=== PATIENT | male | born 1965 | race Caucasian/White ===

== ENCOUNTER 2022-06-10 23:17 | Inpatient (IN) | payer BC ==
[~2022-06-10] VITALS: Ht 170.2 cm; Wt 90.7 kg
[2022-06-10 23:20] VITALS: BP_SYST 124
[2022-06-10] MEDS ORDERED: cefTRIAXone 1 GM IVPB PREMIX 50 ML IV ONE (23:30)
--- NOTE | 2022-06-10 23:30 | NUR ---
Patient BIBA to bed 4 & connected to CM.
--- NOTE | 2022-06-10 23:30 | NUR ---
Report received from ELEANOR Blank. Patient came from a [facility]. Patient became ALOC, with Hx of CVA & multiple UTI's. Addendum: 06/11/22 at 0322 by [id number] Patient was ALOC 3 hours MED DIR.
--- NOTE | 2022-06-10 23:35 | NUR ---
Patient to CT via [facility].
--- NOTE | 2022-06-10 23:48 | NUR ---
Patient return to bed [address]
--- NOTE | 2022-06-10 23:49 | NUR ---
at bedside for evaluation.
--- NOTE | 2022-06-10 23:51 | NUR ---
Textile Worker at bedside. Blood obtained and specimens sent to lab.
[2022-06-11 00:13] LABS: BASOPHILS % (AUTO) 0.3 % (0.0-2.0); EOSINOPHILS # (AUTO) 0.2 K/uL (0.0-0.4); HEMATOCRIT 27.4 % (36-54); LYMPHOCYTES # (AUTO) 1.2 K/uL (1.0-5.5); LYMPHOCYTES % (AUTO) 21.6 % (20.5-51.5); MEAN CORPUSCULAR HEMOGLOBIN 27 pg (27-31); MEAN CORPUSCULAR HGB CONC 33 % (32-36); MEAN CORPUSCULAR VOLUME 83 fL (79.0-98.0); MONOCYTES # (AUTO) 0.8 K/uL (0.0-1.0); MONOCYTES % (AUTO) 13.2 % (1.7-9.3); NEUTROPHILS # (AUTO) 3.6 K/uL (1.8-7.7); NEUTROPHILS % (AUTO) 61.9 % (40.0-70.0); PLATELET COUNT (AUTO) 404 K/uL (130-430); RED BLOOD CELL COUNT(AUTO) 3.32 MIL/uL (4.2-6.2); RED CELL DISTRIBUTION WIDTH 18.9 % (9.0-15.0); WHITE BLOOD COUNT (AUTO) 5.7 K/uL (4.8-10.8)
[2022-06-11] MEDS ORDERED: NACL 0.9% 1,000 ML IV ONE (00:15)
[2022-06-11 00:25] LABS: ANION GAP 4 (5-15); CALCIUM 8.1 mg/dL (8.4-11.0); CHLORIDE 104 mmol/L (98-107); GLUCOSE 116 mg/dL (70-99); UREA NITROGEN, BLOOD 10 mg/dL (8-21)
[2022-06-11 00:32] LABS: GFR AFRICAN AMERICAN 111 mL/min (>90)
[2022-06-11 00:33] LABS: ALANINE AMINOTRANSFERASE 8 U/L (12-78); ALBUMIN 2.5 g/dL (3.4-4.8); ASPARTATE AMINOTRANSFERASE 17 U/L (10-37); TOTAL BILIRUBIN 0.9 mg/dL (0.0-1.0)
[2022-06-11] MEDS ORDERED: METO-442 PO (00:44)
[2022-06-11] MEDS ORDERED: PRO40 PO (00:44)
[2022-06-11] MEDS ORDERED: DILT60TA3 PO (00:44)
[2022-06-11] MEDS ORDERED: SENN8.6T19 PO (00:44)
[2022-06-11] MEDS ORDERED: CALC-823 PO (00:44)
[2022-06-11] MEDS ORDERED: ONDA-8 TL (00:44)
[2022-06-11] MEDS ORDERED: L. A1TAB14 PO (00:44)
[2022-06-11] MEDS ORDERED: INSU100V42 (00:44)
[2022-06-11] MEDS ORDERED: APIX5TAB4 PO (00:44)
[2022-06-11] MEDS ORDERED: LIP40 PO (00:44)
[2022-06-11] MEDS ORDERED: SER25 PO (00:44)
[2022-06-11] MEDS ORDERED: AMIO200T66 PO (00:44)
[2022-06-11] MEDS ORDERED: LEVE500T9 PO (00:44)
[2022-06-11] MEDS ORDERED: MIRT-114 PO (00:44)
[2022-06-11] MEDS ORDERED: FER300L PO (00:44)
[2022-06-11] MEDS ORDERED: FURO-150 PO (00:44)
[2022-06-11] MEDS ORDERED: DOCU-144 PO (00:44)
[2022-06-11] MEDS ORDERED: DRON2.5C22 PO (00:44)
[2022-06-11] MEDS ORDERED: HYDR-3917 PO (00:48)
[2022-06-11] MEDS ORDERED: ACET325T PO (00:48)
--- NOTE | 2022-06-11 01:05 | NUR ---
VO Dr. Fuentes F/C insertion. UA collected, dipped & sent to lab.
[2022-06-11 01:58] LABS: BILIRUBIN,URINE NEGATIVE (NEGATIVE); BLOOD, URINE 2+ (NEGATIVE); CLARITY/URINE TURBID (CLEAR); COLOR,URINE YELLOW (YELLOW); GLUCOSE,URINE NEGATIVE (NEGATIVE); KETONES,URINE NEGATIVE (NEGATIVE); LEUKOCYTE ESTERASE ,URINE 3+ (NEGATIVE); NITRITE, URINE NEGATIVE (NEGATIVE); PROTEIN URINE 1+ (NEGATIVE); UROBILINOGEN,URINE 0.2 (0.2-1.0)
--- NOTE | 2022-06-11 02:00 | NUR ---
No change from previous assessment.
[2022-06-11 02:12] LABS: BACTERIA,URINE MODERATE /HPF (None Seen); WBC,URINE 50-80 /HPF (0-3)
[2022-06-11 02:13] LABS: MUCUS,URINE 1+ /LPF (None Seen)
--- NOTE | 2022-06-11 03:09 | NUR ---
Admit bed requested Patient will be admitted to care of . Admitted to Med/Surg unit. Diagnosis UTI, ALOC Inpatient (Yes or No) Yes Observation (Yes or No) No Orientation concerns or request close to nursing station (Yes or No) Yes Covid Status Neg On vent or bipap No Isolation requirements No Needs a sitter No From Home (Yes or if No enter name of facility) No: [facility] Requires Dialysis (Yes or No) No Med Rec Completed (Yes of No) Yes
--- NOTE | 2022-06-11 04:09 | NUR ---
Patient will be admitted to care of Dr. Hernandez. Admitted to M/S unit. Will go to room 103A. Belongings list completed. Complete and up to date summary report printed. Report called to EVELYN Farley.
--- NOTE | 2022-06-11 04:15 | NUR ---
ADMISSION NOTE Received patient from ER via [facility], received report from RN. Patient admitted with diagnosis of UTI, ALOC. Patient oriented to hospital routine, call light, toileting and safety-patient needs reinforcement on teachings. Will continue to monitor.
--- NOTE | 2022-06-11 04:33 | NUR ---
CONSULTATION PAGED REASON FOR CONSULTATION: uti WAS CONSULT CALLED? Y PERSON WHO WAS NOTIFIED: Vikki CONSULTING PHYSICIAN: García Gomez REQUESTING PHYSICIAN: Dr. Hernandez
[2022-06-11] MEDS: NACL 0.9% 1,000 ML IV SCH ×2 (05:29→22:20)
--- NOTE | 2022-06-11 06:37 | NUR ---
DR. WALSH CALLED DR. WALSH FOR DIET ORDER, NEW ORDERS GIVEN. WILL ENDORSE TO INCOMING SHIFT NURSE.
[2022-06-11] MEDS ORDERED: INSULIN REGULAR, HUMAN 100 UNITS/ML, 3 ML VIAL (humuLIN R) SUBCUT PRN (06:45)
[2022-06-11] MEDS ORDERED: GLUCOSE (DEXTROSE) ORAL GEL -Adults PO PRN (07:00)
[2022-06-11] MEDS ORDERED: D5W 1,000 ML IV PRN (07:00)
[2022-06-11] MEDS ORDERED: DEXTROSE 50%-WATER 50 ML DISP.SYRIN IVP PRN (07:00)
[2022-06-11 07:08] LABS: BASOPHILS % (AUTO) 0.2 % (0.0-2.0); EOSINOPHILS # (AUTO) 0.2 K/uL (0.0-0.4); EOSINOPHILS % (AUTO) 2.8 % (0.0-4.0); HEMATOCRIT 26.7 % (36-54); LYMPHOCYTES % (AUTO) 13.8 % (20.5-51.5); MEAN CORPUSCULAR HEMOGLOBIN 28 pg (27-31); MEAN CORPUSCULAR HGB CONC 34 % (32-36); MEAN CORPUSCULAR VOLUME 83 fL (79.0-98.0); MONOCYTES # (AUTO) 0.8 K/uL (0.0-1.0); MONOCYTES % (AUTO) 10.9 % (1.7-9.3); NEUTROPHILS % (AUTO) 72.3 % (40.0-70.0); PLATELET COUNT (AUTO) 397 K/uL (130-430); RED BLOOD CELL COUNT(AUTO) 3.21 MIL/uL (4.2-6.2); RED CELL DISTRIBUTION WIDTH 18.9 % (9.0-15.0); WHITE BLOOD COUNT (AUTO) 6.9 K/uL (4.8-10.8)
[2022-06-11 07:31] LABS: CALCIUM 7.8 mg/dL (8.4-11.0); CREATININE 0.87 mg/dL (0.55-1.30); THYROID STIMULATING HORMONE 3.73 uIu/mL (0.34-4.82)
--- NOTE | 2022-06-11 08:00 | NUR ---
Opening note Pt. is currently confused, only able to state name, laying comfortably in bed, no signs of acute distress, waiting for Dr. Hernandez to see the patient. Addendum: 06/11/22 at 1204 by [facility], EVELYN RIVAS Fall precautions in place, bed alarm on.
--- NOTE | 2022-06-11 09:00 | NUR ---
Pt. is now fully awake and is oriented, no longer confused, and able to obey commands, educated on fall precautions, oriented to unit, educated on carlos care and his role in infection prevention, pt. verbalized his understanding.
[2022-06-11 09:28] VITALS: BP_SYST 141
--- NOTE | 2022-06-11 12:08 | NUR ---
Pt's family at bedside is wanting an update from Dr. Hernandez, this pt. was admitted early this AM and pt. has not yet been seen by attending MD. Called Dr. Hernandez to inquire when he would be rounding and about medication reconciliation that has not been done, Dr. Hernandez stated his associate will be coming, Theresa, updated family and patient.
[2022-06-11 13:51] VITALS: BP_SYST 153
[2022-06-11 17:32] VITALS: BP_SYST 139
[2022-06-11 17:38] VITALS: BP_SYST 134
[2022-06-11] MEDS: METOPROLOL TARTRATE 50 MG TABLET PO SCH ×2 (17:42→23:21)
--- NOTE | 2022-06-11 19:32 | NUR ---
Closing Note Pt. is currently resting in bed, family at bedside, no signs of acute distress, full sbar report given to EVELYN Martin.
[2022-06-11 20:00] VITALS: BP_SYST 136
--- NOTE | 2022-06-11 20:00 | NUR ---
RECEIVED IN BED WITH FAMILY MEMBER AT BED SIDE ASSISSMENT COMPLETED PT DENIES PAIN AT THIS TIME PLAN OF CARE REVIEWED WILL CONTINUE TO MONITOR AND ASSESS CALL LIGHT IN REACH LEFT SIDE WEAK SECONDARY TO CVA REPOSITIONED FOR COMFORT CALL LIGHT IN REACH NO ACUTE DISTRESS NOTED
--- NOTE | 2022-06-11 20:00 | NUR ---
RECEIVED IN BED WITH FAMILY AT BEDSIDE A/OX4 HARD OF HEARING DRESSING AT LEFT HIP CLEAN DRY AND INTACT ASSESSMENT COMPLETED PLAN OF CARE REVIEWED WILL CONTINUE TO MONITOR AND ASSESS CALL LIGHT IN REACH NO DISTRESS NOTED AT THIS TIME Addendum: 06/12/22 at 0143 by [facility], EVELYN RIVAS ABOVE NOTED CHARTED IN ERROR
[2022-06-11] MEDS: APIXABAN 2.5 MG TABLET PO SCH (22:12)
[2022-06-11] MEDS: QUEtiapine FUMARATE 25 MG TABLET PO SCH (22:12)
[2022-06-11] MEDS: AMIODARONE HCL 200 MG TABLET PO SCH (22:13)
[2022-06-11] MEDS: MIRTAZAPINE 15 MG TABLET PO SCH (22:13)
[2022-06-11] MEDS: SENNOSIDES 8.6 MG TABLET PO SCH (22:13)
[2022-06-11] MEDS: cefTRIAXone 1 GM in D5W 50 ML IV SCH (22:14)
[2022-06-11] MEDS: levETIRAcetam 500 MG TABLET PO SCH (22:16)
[2022-06-12] VITALS (9 sets, daily range): BP systolic 114–162
--- NOTE | 2022-06-12 00:30 | NUR ---
UPON ROUNDING DENIES PAIN NO DISTRESS NOTED AT THIS TIME
--- NOTE | 2022-06-12 01:44 | NUR ---
BP RECHECKED AND NOTED 152/89 AFTER METOPROLOL PT DENIES HEADACH DENIES CHEST PAIN WILL CONTINUE TO MONITOR AND ASSESSS
[2022-06-12] MEDS: METOPROLOL TARTRATE 50 MG TABLET PO SCH ×3 (05:21→17:32)
[2022-06-12 06:45] LABS: BASOPHILS % (AUTO) 0.1 % (0.0-2.0); EOSINOPHILS # (AUTO) 0.2 K/uL (0.0-0.4); EOSINOPHILS % (AUTO) 3.7 % (0.0-4.0); HEMATOCRIT 26.8 % (36-54); HEMOGLOBIN 8.9 g/dL (14.0-18.0); LYMPHOCYTES # (AUTO) 1.3 K/uL (1.0-5.5); LYMPHOCYTES % (AUTO) 20.5 % (20.5-51.5); MEAN CORPUSCULAR HEMOGLOBIN 28 pg (27-31); MEAN CORPUSCULAR HGB CONC 33 % (32-36); MEAN CORPUSCULAR VOLUME 83 fL (79.0-98.0); MONOCYTES # (AUTO) 0.8 K/uL (0.0-1.0); MONOCYTES % (AUTO) 12.9 % (1.7-9.3); NEUTROPHILS % (AUTO) 62.8 % (40.0-70.0); PLATELET COUNT (AUTO) 376 K/uL (130-430); RED BLOOD CELL COUNT(AUTO) 3.23 MIL/uL (4.2-6.2); RED CELL DISTRIBUTION WIDTH 18.6 % (9.0-15.0); WHITE BLOOD COUNT (AUTO) 6.3 K/uL (4.8-10.8)
[2022-06-12 07:40] LABS: CALCIUM 8.1 mg/dL (8.4-11.0); CREATININE 0.75 mg/dL (0.55-1.30)
--- NOTE | 2022-06-12 07:55 | NUR ---
OPENING NOTE RECEIVED BEDSIDE SBAR FORM PM SHIFT NURSE, PATIENT IS STABLE NO DISTRESS, BED AT LOW POSITION CALL LIGHT IN REACH WILL CONT TO MONITOR PER ORDERS
--- NOTE | 2022-06-12 09:14 | NUR ---
Discharge Planning: DCP faxed pt referral to [facility] F#[phone] [facility] P#[phone] DCP to follow up Addendum: 06/12/22 at 1441 by Brianna Gtz DP DCP arranged transport with [facility] [phone] BLS 8:00pm to [facility] F#[phone] [facility] P#[phone] 2. DCP made CM and nurse aware. Patient packet taken to nurse station.
[2022-06-12] MEDS: FERROUS SULFATE 300 MG/5 ML UDC PO SCH (09:34)
[2022-06-12] MEDS: levETIRAcetam 500 MG TABLET PO SCH ×2 (09:34→20:41)
[2022-06-12] MEDS: DOCUSATE SODIUM 100 MG CAPSULE PO SCH (09:34)
[2022-06-12] MEDS: AMIODARONE HCL 200 MG TABLET PO SCH ×2 (09:35→20:43)
[2022-06-12] MEDS: DILTIAZEM HCL 60 MG TABLET PO SCH (09:36)
[2022-06-12] MEDS: SENNOSIDES 8.6 MG TABLET PO SCH ×2 (09:37→20:43)
[2022-06-12] MEDS: APIXABAN 2.5 MG TABLET PO SCH ×2 (09:37→20:42)
[2022-06-12] MEDS: ATORVASTATIN 20 MG TABLET PO SCH (09:37)
[2022-06-12] MEDS: PANTOPRAZOLE SODIUM 40 MG TAB PO SCH (09:37)
[2022-06-12] MEDS: FUROSEMIDE 20 MG TABLET PO SCH (09:38)
[2022-06-12] MEDS: QUEtiapine FUMARATE 25 MG TABLET PO SCH ×2 (09:38→20:45)
[2022-06-12] MEDS: CALCIUM CARBONATE/VITAMIN D3 1 TAB TABLET PO SCH (09:39)
--- NOTE | 2022-06-12 12:30 | NUR ---
ROUNDS PATIENT REMAINS STABLE NO DISTRESS CALL LIGHT IN REACH BED AT LOW POSITION FAMILY AT BEDSIDE WILL CONT TO MONITOR PER ORDERS.
--- NOTE | 2022-06-12 17:20 | NUR ---
RECEIVED PT FROM KWADWO BONILLA AT 1720 , BS CHECKED AND PM MEDS GIVEN. DC INSTRUCTION DONE AND DC PACKET CHECKED.
--- NOTE | 2022-06-12 19:20 | NUR ---
PM ASSESSMENT; -Pt is a/ox4,resting in bed comfortably. Pt denies any chest pain,pain,sob,or any acute distress. IV site patent, no s/s any infiltration noted. Smyth cath w/ gravity drains yellow urine output. Discussed poc, waiting for [facility] to picker feeder pt at 2000, pt & Dolores-dtr at bedside verbalized understanding. Bed alarmed, side rails x3, call light w/in reach. cont to monitor pt.
--- NOTE | 2022-06-12 20:10 | NUR ---
NOTES; CALLED & ENDORSED TO ANGIE AT [facility] THAT PT IS LEAVING AT 1999 AND UPDATED PLAN OF CARE AND TO CALL CM DEPT FOR UA CX & SENSITIVITY RESULTS ON Wed06/15/22. KEEP BRONSON CATH AND IV SITE PER LUCIE REQUESTS.
--- NOTE | 2022-06-12 20:18 | NUR ---
NOTES; CALLED [facility] -Informed Raymond that [facility] is only available to car pick up driver pt at 1-2 am and patient and Dolores-dtr at bedside informed and awared and okay to leave at this time.
[2022-06-12] MEDS: cefTRIAXone 1 GM in D5W 50 ML IV SCH (20:44)
[2022-06-12] MEDS: NACL 0.9% 1,000 ML IV SCH (20:44)
[2022-06-12] MEDS: MIRTAZAPINE 15 MG TABLET PO SCH (20:45)
--- NOTE | 2022-06-12 21:53 | NUR ---
NOTES;NOTIFIED [facility] REGARDING PT,FAMILY,AND [facility] ARE OK TO LEAVE AROUND 1-2 AM.
[2022-06-13] VITALS (9 sets, daily range): BP systolic 122–158
[2022-06-13] MEDS: METOPROLOL TARTRATE 50 MG TABLET PO SCH ×3 (00:11→12:50)
--- NOTE | 2022-06-13 00:11 | NUR ---
ROUNDS; -Pt is resting in bed comfortably. Pt denies any chest pain,pain,sob,or any acute distress. IV site patent, no s/s any infiltration noted. Brady cath w/ gravity drains yellow urine output. Gave scheduled midnight med lopressor 50mg po, VP=164/74,hr=85. Bed alarmed, side rails x3, call light w/in reach. cont to monitor pt.
--- NOTE | 2022-06-13 01:38 | NUR ---
NOTES; TEE-KWADWO FROM [facility] STATED THAT NB=531/97 AND 152/93 IS TOO HIGH TO TAKE THIS PATIENT. SHE WAS ON ANOTHER LINE TALKING WITH Jerilyn SHARMA-ANUPAMA THAT ELEVATED BP. TEE STATED, " AEROSOL SUPERVISOR TOLD HER TO RETAKE BP W/IN AN HOUR AND IF SBP BELOW 130 AND TO CALL AND NOTIFY HER AGAIN TO SEE IF [facility] SUPERVISOR WILL ACCEPT PT TO THIS FACILITY WITH THAT BP READING." NORA- CHARGE NURSE INFORMED AND AWARED. NING FROM [facility] LEFT AND STATED THAT IT IS NOT A GURANTEE TO FLOORING GRADER PT W/IN AN HOUR.
--- NOTE | 2022-06-13 02:57 | NUR ---
NOTES; -SPOKE WITH DARIN FROM [facility] REGARDING TOOK HV=746/97,HR=[address] WALSH REGARDING HOLD TRANSFER PER FACILITY REQUESTED.
--- NOTE | 2022-06-13 03:04 | NUR ---
NOTES; HOLD TRANSFER TO [facility] D/T HG BP -NOTIFIED DR. WALSH THAT I SPOKE WITH DARIN FROM [facility] REGARDING TOOK FP=341/97,HR=86 AND THE FACILITY WON'T TAKE PT AT THIS TIME WITH ELEVATED BP. STATED, "OKAY." [facility] NURSE INFORMED AND AWARED.
--- NOTE | 2022-06-13 07:02 | NUR ---
CLOSING NOTES; -Pt is resting in bed comfortably. Pt denies any chest pain,pain,sob,or any acute distress. IV site patent, no s/s any infiltration noted. Brady cath w/ gravity drains yellow urine output. Bed alarmed, side rails x3, call light w/in reach. Will endorse to next nurse to cont care.
[2022-06-13] MEDS: levETIRAcetam 500 MG TABLET PO SCH (08:19)
[2022-06-13] MEDS: CALCIUM CARBONATE/VITAMIN D3 1 TAB TABLET PO SCH (08:19)
[2022-06-13] MEDS: ATORVASTATIN 20 MG TABLET PO SCH (08:19)
[2022-06-13] MEDS: FERROUS SULFATE 300 MG/5 ML UDC PO SCH (08:20)
[2022-06-13] MEDS: DILTIAZEM HCL 60 MG TABLET PO SCH (08:20)
[2022-06-13] MEDS: DOCUSATE SODIUM 100 MG CAPSULE PO SCH (08:20)
[2022-06-13] MEDS: PANTOPRAZOLE SODIUM 40 MG TAB PO SCH (08:20)
[2022-06-13] MEDS: AMIODARONE HCL 200 MG TABLET PO SCH (08:20)
[2022-06-13] MEDS: SENNOSIDES 8.6 MG TABLET PO SCH (08:20)
[2022-06-13] MEDS: QUEtiapine FUMARATE 25 MG TABLET PO SCH (08:21)
[2022-06-13] MEDS: FUROSEMIDE 20 MG TABLET PO SCH (08:21)
[2022-06-13] MEDS: APIXABAN 2.5 MG TABLET PO SCH (08:24)
--- NOTE | 2022-06-13 10:54 | NUR ---
Dr. Ro Donovan called for urine culture results and discharge antibiotics.
--- NOTE | 2022-06-13 11:20 | NUR ---
Called [facility] [phone] for final urine culture result so Dr. Ro Donovan and suggest the antibiotic for the patient. Dr. Hernandez made aware of situation because patient set to be discharged today.
[2022-06-13] MEDS ORDERED: MERO1VIA23 IV (11:34)
[2022-06-13] MEDS ORDERED: MEROPENEM 1 GM in NS 100 ML IV ONE (12:00)
--- NOTE | 2022-06-13 13:35 | NUR ---
Called [facility] regarding antibiotic. Dr. Donovan suggested Merrem BID IVPB. Facility says no nurse at night to hang antibiotic. Dr. Donovan aware but said the antibiotic still BID due to resistance to other antibiotics.
--- NOTE | 2022-06-13 13:48 | NUR ---
ACTIVATED AMBULANCE TRANSPORT WITH [facility] GOING TO [facility]. [facility] DENTIST TIME IS BETWEEN 1430 TO 1445. SPOKE TO NIKKI.
--- NOTE | 2022-06-13 14:23 | NUR ---
Spoke with Dr. Hernandez regarding situation with meropenem dosage and facility only can have antibiotic q24h. New orders noted and carried out.
--- NOTE | 2022-06-13 14:25 | NUR ---
Dr. David haynes with 1G meropenem hang at facility at this time.
[2022-06-13] MEDS: NACL 0.9% 1,000 ML IV SCH (15:15)
--- NOTE | 2022-06-13 15:54 | NUR ---
ANOTHER CALL WAS DONE TO [facility] TO FOLLOW UP MILITARY EDUCATION COORDINATOR TIME . THE NEW ETA 1700. SPOKE TO DARREN.
--- NOTE | 2022-06-13 17:33 | NUR ---
Report given to EVELYN Ramos [facility]. Report also given to service establishment attendant [facility]. Patient ready for transfer back to [facility]. No distress noted. Vital signs stable. Patient has carlos and left IV 22G for antibiotics at facility. All paperwork given and signed. All belongings with patient and patient's daughter. Patient transferred from hospital bed to [facility]. [facility] notified and awaiting for patient arrival.
[2022-06-13] MEDS ORDERED: MEROPENEM 1 GM in NS 100 ML IV SCH (22:00)
== END 2022-06-13 17:35 | DRG 92 ==
LOC: SED 23:17 → SMU 06-11 02:55
PROVIDERS: ADMIT Internal Medicine; ATTEND Internal Medicine
DX: G92.9 Unspecified toxic encephalopathy (principal); I69.354 Hemiplegia and hemiparesis following cerebral infarction affecting left non-dominant side; N39.0 Urinary tract infection, site not specified; Z20.822 Contact with and (suspected) exposure to COVID-19; E78.5 Hyperlipidemia, unspecified; I48.91 Unspecified atrial fibrillation; I10 Essential (primary) hypertension; Z79.899 Other long term (current) drug therapy; Z79.01 Long term (current) use of anticoagulants; Z79.1 Long term (current) use of non-steroidal anti-inflammatories (NSAID)
CPT/HCPCS: 36415; 70450-TC; 71045; 76376; 80048; 80053; 80061; 81000; 82962; 83605; 83880; 84443; 84484; 85025; 87040; 87081; 87086; 93005; 99285; J0696; J1815; J2185; J7030; J7060; Q0167

== ENCOUNTER 2024-04-14 23:55 | Inpatient (IN) | payer BC ==
[~2024-04-14] VITALS: Ht 170.2 cm; Wt 59.1 kg
[~2024-04-14 23:55] MED LIST: ACET325T PO; ACET325T39 PO; AMIN30LI2 PO; AMIO200T66 PO; AMLO5TAB4 PO; ASPI-524 PO; CALC-823 PO; DOCU-144 PO; DRON2.5C22 PO; EPOE1VIA13 SQ; FER300L PO; FOLI-43 PO; FOLI0.8T42 PO; FURO-150 PO; HYDR-3917 PO; INSU100V44; INSU1INS SQ; IPRA3AMP9 INH; L. A1TAB15 PO; LEVE500T9 PO; LIP40 PO; PANT40TA45 PO; POLY17PO44 PO; SENN8.6T19 PO
[2024-04-14 23:57] VITALS: BP_SYST 158; PULSE 138; RESP 16; TEMP 97.7; O2SAT 96
[2024-04-15] VITALS (22 sets, daily range): BP systolic 106–149; PULSE 59–103; RESP 14–36; TEMP 97.2–99; O2SAT 91–98
[2024-04-15] MEDS: cefTRIAXone 1 GM IVPB PREMIX 50 ML IV ONE (00:20)
[2024-04-15] MEDS: NACL 0.9% 1,000 ML IV ONE (00:34)
[2024-04-15 00:38] LABS: LYMPHOCYTES # (AUTO) 0.9 K/uL (1.0-5.5)
[2024-04-15] MEDS: ONDANSETRON HCL 4 MG/2 ML VIAL IVP ONE (00:43)
[2024-04-15 00:49] LABS: BASOPHILS # (AUTO) 0.2 K/uL (0.0-0.2); BASOPHILS % (AUTO) 1.1 % (0.0-2.0); EOSINOPHILS # (AUTO) 0.1 K/uL (0.0-0.4); EOSINOPHILS % (AUTO) 0.6 % (0.0-4.0); HEMATOCRIT 26.2 % (36-54); HEMOGLOBIN 8.6 g/dL (14.0-18.0); LYMPHOCYTES % (AUTO) 5.6 % (20.5-51.5); MEAN CORPUSCULAR HEMOGLOBIN 28 pg (27-31); MEAN CORPUSCULAR HGB CONC 33 % (32-36); MEAN CORPUSCULAR VOLUME 86 fL (79.0-98.0); MONOCYTES # (AUTO) 1.1 K/uL (0.0-1.0); MONOCYTES % (AUTO) 6.5 % (1.7-9.3); NEUTROPHILS # (AUTO) 14.1 K/uL (1.8-7.7); NEUTROPHILS % (AUTO) 86.2 % (40.0-70.0); PLATELET COUNT (AUTO) 454 K/uL (130-430); RED BLOOD CELL COUNT(AUTO) 3.06 MIL/uL (4.2-6.2); WHITE BLOOD COUNT (AUTO) 16.4 K/uL (4.8-10.8)
[2024-04-15 00:55] LABS: ANION GAP 10 (5-15); CALCIUM 8.5 mg/dL (8.4-11.0); CARBON DIOXIDE 30 mmol/L (23-29); CHLORIDE 99 mmol/L (98-107); CREATININE 3.32 mg/dL (0.55-1.30); GFR AFRICAN AMERICAN 24 mL/min (>90); GLUCOSE 143 mg/dL (74-106); POTASSIUM 4.6 mmol/L (3.5-5.1); SODIUM SERUM 139 mmol/L (136-145); UREA NITROGEN, BLOOD 42 mg/dL (8-21)
[2024-04-15 00:56] LABS: GFR NON AFRICAN-AMERICAN 20 mL/min (>90)
[2024-04-15 01:02] LABS: INFLUENZA TYPE A Negative (NEGATIVE); INFLUENZA TYPE B NEGATIVE (NEGATIVE)
[2024-04-15 01:09] LABS: CLARITY/URINE HAZY (CLEAR); COLOR,URINE YELLOW (YELLOW); PROTEIN URINE 1+ (NEGATIVE)
[2024-04-15 01:10] LABS: BILIRUBIN,URINE NEGATIVE (NEGATIVE); BLOOD, URINE 2+ (NEGATIVE); GLUCOSE,URINE NEGATIVE (NEGATIVE); KETONES,URINE NEGATIVE (NEGATIVE); LEUKOCYTE ESTERASE ,URINE 3+ (NEGATIVE)
[2024-04-15 01:11] LABS: NITRITE, URINE NEGATIVE (NEGATIVE); UROBILINOGEN,URINE 0.2 (0.2-1.0)
[2024-04-15] MEDS ORDERED: IPRATROPIUM/ALBUTEROL SULFATE 3 ML AMPUL.NEB (DUONEB) INH PRN (01:45)
[2024-04-15] MEDS ORDERED: INSULIN REGULAR, HUMAN 100 UNITS/ML, 3 ML VIAL (humuLIN R) SUBCUT PRN (01:45)
[2024-04-15 01:48] LABS: BACTERIA,URINE MANY /HPF (None Seen)
[2024-04-15 08:05] LABS: BASOPHILS # (AUTO) 0.1 K/uL (0.0-0.2); BASOPHILS % (AUTO) 1.2 % (0.0-2.0); EOSINOPHILS # (AUTO) 0.1 K/uL (0.0-0.4); EOSINOPHILS % (AUTO) 0.9 % (0.0-4.0); HEMATOCRIT 26.1 % (36-54); LYMPHOCYTES % (AUTO) 7.9 % (20.5-51.5); MEAN CORPUSCULAR HEMOGLOBIN 27 pg (27-31); MEAN CORPUSCULAR HGB CONC 31 % (32-36); MEAN CORPUSCULAR VOLUME 88 fL (79.0-98.0); MONOCYTES % (AUTO) 8.5 % (1.7-9.3); NEUTROPHILS # (AUTO) 9.9 K/uL (1.8-7.7); NEUTROPHILS % (AUTO) 81.5 % (40.0-70.0); PLATELET COUNT (AUTO) 413 K/uL (130-430); RED BLOOD CELL COUNT(AUTO) 2.98 MIL/uL (4.2-6.2); RED CELL DISTRIBUTION WIDTH 18.2 % (9.0-15.0); WHITE BLOOD COUNT (AUTO) 12.1 K/uL (4.8-10.8)
[2024-04-15] MEDS ORDERED: ACETAMINOPHEN 325 MG TABLET PO PRN (08:30)
[2024-04-15] MEDS ORDERED: MAGNESIUM SULFATE 50 ML IV PRN (08:30)
[2024-04-15] MEDS ORDERED: DOCUSATE SODIUM 100 MG CAPSULE PO PRN (08:30)
[2024-04-15] MEDS ORDERED: POTASSIUM CHLORIDE 20 MEQ TABLET.ER PO PRN (08:30)
[2024-04-15] MEDS ORDERED: NALOXONE HCL 0.4 MG/ML AMP (NARCAN) IVP PRN ×2 (08:30)
[2024-04-15] MEDS ORDERED: ONDANSETRON HCL 4 MG/2 ML VIAL IVP PRN ×2 (08:30→09:00)
[2024-04-15] MEDS ORDERED: cefTRIAXone 1 GM in D5W 50 ML IV SCH ×2 (08:30→12:00)
[2024-04-15] MEDS ORDERED: MUPIROCIN 2% TOPICAL OINTMENT 22 GM NS PRN (08:30)
[2024-04-15 08:37] LABS: CALCIUM 8.1 mg/dL (8.4-11.0); CREATININE 3.41 mg/dL (0.55-1.30)
[2024-04-15 08:38] LABS: TOTAL BILIRUBIN 0.5 mg/dL (0.0-1.0); TOTAL PROTEIN, SERUM 7.3 g/dL (6.4-8.3)
[2024-04-15] MEDS: ONDANSETRON HCL 4 MG/2 ML VIAL ONE (09:14)
[2024-04-15] MEDS ORDERED: ATOR20TA64 PO (09:41)
[2024-04-15] MEDS: FUROSEMIDE 40 MG/4 ML VIAL IVP SCH (10:04)
[2024-04-15] MEDS: amLODIPine BESYLATE 5 MG TABLET PO ONE (10:05)
[2024-04-15] MEDS: levETIRAcetam 500 MG TABLET PO ONE (10:06)
[2024-04-15] MEDS: ASPIRIN 81 MG TAB.CHEW PO ONE (10:06)
[2024-04-15] MEDS: METOPROLOL TARTRATE 25 MG TABLET PO ONE (10:07)
[2024-04-15] MEDS: ATORVASTATIN 20 MG TABLET PO SCH (10:08)
[2024-04-15] MEDS: ATORVASTATIN 20 MG TABLET PO ONE (10:13)
[2024-04-15] MEDS: MEROPENEM 500 MG in NS 50 ML IV SCH (12:55)
[2024-04-15] MEDS: MORPHINE 2 MG/ML INJ. SYRINGE IVP PRN (14:26)
[2024-04-15] MEDS ORDERED: SSNOVOLOG SUBCUT (17:09)
[2024-04-15] MEDS ORDERED: HYDR-3919 PO (17:11)
[2024-04-15] MEDS ORDERED: HEPARIN IV FLUSH 1 UNIT/ML PF 6ML SYRINGE IV PRN (19:00)
[2024-04-15] MEDS ORDERED: AMIODARONE HCL 200 MG TABLET PO SCH (21:00)
[2024-04-15] MEDS: levETIRAcetam 500 MG TABLET PO SCH (21:18)
[2024-04-15] MEDS: METOPROLOL TARTRATE 25 MG TABLET PO SCH (21:18)
[2024-04-16] VITALS (16 sets, daily range): BP systolic 102–131; PULSE 70–81; RESP 14–27; TEMP 97.5–98.8; O2SAT 72–99
[2024-04-16 06:18] LABS: BASOPHILS # (AUTO) 0.2 K/uL (0.0-0.2); BASOPHILS % (AUTO) 1.4 % (0.0-2.0); EOSINOPHILS # (AUTO) 0.3 K/uL (0.0-0.4); EOSINOPHILS % (AUTO) 2.5 % (0.0-4.0); HEMATOCRIT 22.6 % (36-54); HEMOGLOBIN 7.1 g/dL (14.0-18.0); LYMPHOCYTES # (AUTO) 0.9 K/uL (1.0-5.5); LYMPHOCYTES % (AUTO) 7.3 % (20.5-51.5); MEAN CORPUSCULAR HEMOGLOBIN 27 pg (27-31); MEAN CORPUSCULAR HGB CONC 31 % (32-36); MEAN CORPUSCULAR VOLUME 87 fL (79.0-98.0); MONOCYTES # (AUTO) 0.9 K/uL (0.0-1.0); MONOCYTES % (AUTO) 8.1 % (1.7-9.3); NEUTROPHILS # (AUTO) 9.4 K/uL (1.8-7.7); NEUTROPHILS % (AUTO) 80.7 % (40.0-70.0); PLATELET COUNT (AUTO) 409 K/uL (130-430); RED BLOOD CELL COUNT(AUTO) 2.59 MIL/uL (4.2-6.2); RED CELL DISTRIBUTION WIDTH 17.8 % (9.0-15.0); WHITE BLOOD COUNT (AUTO) 11.6 K/uL (4.8-10.8)
[2024-04-16 06:22] LABS: CALCIUM 8.2 mg/dL (8.4-11.0); CREATININE 2.69 mg/dL (0.55-1.30); THYROID STIMULATING HORMONE 4.21 uIu/mL (0.36-3.74)
[2024-04-16] MEDS ORDERED: AMIODARONE HCL 200 MG TABLET PO SCH (09:00)
[2024-04-16] MEDS: amLODIPine BESYLATE 5 MG TABLET PO SCH (09:37)
[2024-04-16] MEDS: ASPIRIN 81 MG TAB.CHEW PO SCH (09:37)
[2024-04-16] MEDS: AMIODARONE HCL 200 MG TABLET PO SCH (09:38)
[2024-04-16] MEDS: ATORVASTATIN 20 MG TABLET PO SCH (21:44)
[2024-04-16] MEDS: LORazepam 2 MG/ML VIAL IVP PRN (23:56)
[2024-04-17 00:02] VITALS: BP_SYST 118; PULSE 73; RESP 16; TEMP 98.5; O2SAT 97
[2024-04-17 08:30] VITALS: BP_SYST 104; PULSE 83; RESP 20; TEMP 96.1; O2SAT 98
[2024-04-17] MEDS ORDERED: AMIODARONE HCL 200 MG TABLET PO SCH (09:00)
[2024-04-17 12:00] VITALS: BP_SYST 114; PULSE 74; RESP 20; TEMP 98.4; O2SAT 95
[2024-04-17 13:11] LABS: BASOPHILS # (AUTO) 0.1 K/uL (0.0-0.2); BASOPHILS % (AUTO) 1.3 % (0.0-2.0); EOSINOPHILS # (AUTO) 0.2 K/uL (0.0-0.4); EOSINOPHILS % (AUTO) 2.1 % (0.0-4.0); HEMATOCRIT 26.7 % (36-54); HEMOGLOBIN 8.6 g/dL (14.0-18.0); LYMPHOCYTES # (AUTO) 0.8 K/uL (1.0-5.5); LYMPHOCYTES % (AUTO) 7.9 % (20.5-51.5); MEAN CORPUSCULAR HEMOGLOBIN 28 pg (27-31); MEAN CORPUSCULAR HGB CONC 32 % (32-36); MEAN CORPUSCULAR VOLUME 86 fL (79.0-98.0); MONOCYTES # (AUTO) 0.7 K/uL (0.0-1.0); MONOCYTES % (AUTO) 7.3 % (1.7-9.3); NEUTROPHILS # (AUTO) 8.4 K/uL (1.8-7.7); NEUTROPHILS % (AUTO) 81.4 % (40.0-70.0); PLATELET COUNT (AUTO) 524 K/uL (130-430); RED BLOOD CELL COUNT(AUTO) 3.12 MIL/uL (4.2-6.2); RED CELL DISTRIBUTION WIDTH 17.8 % (9.0-15.0); WHITE BLOOD COUNT (AUTO) 10.3 K/uL (4.8-10.8)
[2024-04-17 13:26] LABS: CREATININE 4.2 mg/dL (0.55-1.30); POTASSIUM 5.5 mmol/L (3.5-5.1)
[2024-04-17 16:31] VITALS: BP_SYST 115; PULSE 63; RESP 20; TEMP 98.5; O2SAT 98
[2024-04-17 17:40] LABS: BILIRUBIN,URINE NEGATIVE (NEGATIVE); CLARITY/URINE CLEAR (CLEAR); COLOR,URINE YELLOW (YELLOW); GLUCOSE,URINE NEGATIVE (NEGATIVE); KETONES,URINE NEGATIVE (NEGATIVE); NITRITE, URINE NEGATIVE (NEGATIVE); PROTEIN URINE 1+ (NEGATIVE); UROBILINOGEN,URINE 0.2 (0.2-1.0)
[2024-04-17 17:49] LABS: BLOOD, URINE TRACE (NEGATIVE); LEUKOCYTE ESTERASE ,URINE 1+ (NEGATIVE)
[2024-04-17 17:50] LABS: BACTERIA,URINE FEW /HPF (None Seen); MUCUS,URINE None Seen /LPF (None Seen); RBC,URINE 0-3 /HPF (0-3)
[2024-04-17 20:02] VITALS: BP_SYST 118; PULSE 104; RESP 20; TEMP 98.7; O2SAT 94
[2024-04-17] MEDS: DOXYCYCLINE HYCLATE 100 MG in D5W 100 ML IV SCH (21:10)
[2024-04-18 00:22] VITALS: BP_SYST 126; PULSE 96; RESP 20; TEMP 99.5
[2024-04-18] MEDS: ZOLPIDEM TARTRATE 5 MG TABLET PO PRN (00:53)
[2024-04-18 06:28] LABS: BASOPHILS # (AUTO) 0.2 K/uL (0.0-0.2); BASOPHILS % (AUTO) 1.8 % (0.0-2.0); EOSINOPHILS # (AUTO) 0.2 K/uL (0.0-0.4); EOSINOPHILS % (AUTO) 2.3 % (0.0-4.0); HEMATOCRIT 25.6 % (36-54); HEMOGLOBIN 8.2 g/dL (14.0-18.0); LYMPHOCYTES # (AUTO) 0.9 K/uL (1.0-5.5); LYMPHOCYTES % (AUTO) 9.6 % (20.5-51.5); MEAN CORPUSCULAR HEMOGLOBIN 27 pg (27-31); MEAN CORPUSCULAR HGB CONC 32 % (32-36); MEAN CORPUSCULAR VOLUME 86 fL (79.0-98.0); MONOCYTES # (AUTO) 1.1 K/uL (0.0-1.0); MONOCYTES % (AUTO) 11.5 % (1.7-9.3); NEUTROPHILS # (AUTO) 7.1 K/uL (1.8-7.7); NEUTROPHILS % (AUTO) 74.8 % (40.0-70.0); PLATELET COUNT (AUTO) 533 K/uL (130-430); RED BLOOD CELL COUNT(AUTO) 2.99 MIL/uL (4.2-6.2); WHITE BLOOD COUNT (AUTO) 9.5 K/uL (4.8-10.8)
[2024-04-18 07:20] LABS: CALCIUM 8.3 mg/dL (8.4-11.0); CREATININE 2.76 mg/dL (0.55-1.30); TOTAL BILIRUBIN 0.5 mg/dL (0.0-1.0); TOTAL PROTEIN, SERUM 7.4 g/dL (6.4-8.3)
[2024-04-18 08:00] VITALS: O2SAT 98
[2024-04-18 08:10] VITALS: BP_SYST 130; PULSE 73; RESP 20; TEMP 98.7; O2SAT 98
[2024-04-18] MEDS: BALSAM PERU/CASTOR OIL 56.7 GM OINT...G. TP SCH (10:09)
[2024-04-18 11:01] VITALS: BP_SYST 139; PULSE 61; RESP 16; TEMP 97.9; O2SAT 96
[2024-04-18 15:31] VITALS: BP_SYST 140; PULSE 75; RESP 16; TEMP 97.9; O2SAT 99
[2024-04-18] MEDS: HEPARIN SODIUM,PORCINE 5,000 UNITS/ML VIAL IV PRN (18:12)
[2024-04-18 21:00] VITALS: BP_SYST 122; PULSE 61; RESP 18; TEMP 98.8; O2SAT 96
[2024-04-19] VITALS (10 sets, daily range): BP systolic 82–132; PULSE 52–103; RESP 15–18; TEMP 97.3–98.3; O2SAT 94–100
[2024-04-19] MEDS: IPRATROPIUM/ALBUTEROL SULFATE 3 ML AMPUL.NEB (DUONEB) INH PRN (03:23)
[2024-04-19 06:37] LABS: BASOPHILS # (AUTO) 0.1 K/uL (0.0-0.2); BASOPHILS % (AUTO) 1.1 % (0.0-2.0); EOSINOPHILS # (AUTO) 0.2 K/uL (0.0-0.4); EOSINOPHILS % (AUTO) 1.9 % (0.0-4.0); HEMATOCRIT 25.3 % (36-54); LYMPHOCYTES # (AUTO) 1.6 K/uL (1.0-5.5); MEAN CORPUSCULAR HEMOGLOBIN 27 pg (27-31); MEAN CORPUSCULAR HGB CONC 32 % (32-36); MEAN CORPUSCULAR VOLUME 85 fL (79.0-98.0); MONOCYTES # (AUTO) 1.4 K/uL (0.0-1.0); MONOCYTES % (AUTO) 11.4 % (1.7-9.3); NEUTROPHILS # (AUTO) 8.9 K/uL (1.8-7.7); NEUTROPHILS % (AUTO) 72.6 % (40.0-70.0); PLATELET COUNT (AUTO) 558 K/uL (130-430); RED BLOOD CELL COUNT(AUTO) 2.96 MIL/uL (4.2-6.2); RED CELL DISTRIBUTION WIDTH 17.5 % (9.0-15.0); WHITE BLOOD COUNT (AUTO) 12.2 K/uL (4.8-10.8)
[2024-04-19 07:02] LABS: CREATININE 2.52 mg/dL (0.55-1.30); POTASSIUM 4.6 mmol/L (3.5-5.1); TOTAL BILIRUBIN 0.5 mg/dL (0.0-1.0); TOTAL PROTEIN, SERUM 7.5 g/dL (6.4-8.3)
[2024-04-19] MEDS ORDERED: TRANEXAMIC ACID 1,000 MG/10 ML VIAL ONE (16:02)
[2024-04-19] MEDS ORDERED: ERTA1VIA3 INJ (17:27)
[2024-04-19] MEDS: QUEtiapine FUMARATE 25 MG TABLET PO ONE (19:15)
[2024-04-19] MEDS: NS 500 ML IV ONE (21:15)
[2024-04-19] MEDS: QUEtiapine FUMARATE 25 MG TABLET PO SCH (23:24)
[2024-04-20] VITALS (13 sets, daily range): BP systolic 76–158; PULSE 56–120; RESP 15–20; TEMP 97.5–98.6; O2SAT 95–100
[2024-04-20] MEDS ORDERED: TRANEXAMIC ACID 1,000 MG/10 ML VIAL ONE ×2 (04:16→10:58)
[2024-04-20] MEDS ORDERED: NACL 0.9% 1,000 ML IV SCH (08:45)
[2024-04-20] MEDS: MIDODRINE HCL 5 MG TABLET (PROAMATINE) PO SCH (08:58)
[2024-04-20] MEDS ORDERED: ALBUMIN HUMAN 25% 50 ML IV ONE (09:30)
[2024-04-20 10:09] LABS: BASOPHILS # (AUTO) 0.2 K/uL (0.0-0.2); BASOPHILS % (AUTO) 1.4 % (0.0-2.0); EOSINOPHILS # (AUTO) 0.1 K/uL (0.0-0.4); NEUTROPHILS # (AUTO) 14.9 K/uL (1.8-7.7); RED CELL DISTRIBUTION WIDTH 18.4 % (9.0-15.0)
[2024-04-20] MEDS: ALBUMIN HUMAN 25% 50 ML IV ONE (10:37)
[2024-04-20 10:42] LABS: EOSINOPHILS % (AUTO) 0.3 % (0.0-4.0); LYMPHOCYTES # (AUTO) 1.8 K/uL (1.0-5.5); MEAN CORPUSCULAR HEMOGLOBIN 27 pg (27-31); MEAN CORPUSCULAR HGB CONC 31 % (32-36); MEAN CORPUSCULAR VOLUME 88 fL (79.0-98.0); MONOCYTES % (AUTO) 5.4 % (1.7-9.3); NEUTROPHILS % (AUTO) 82.9 % (40.0-70.0); PLATELET COUNT (AUTO) 437 K/uL (130-430)
[2024-04-20] MEDS: NOREPINEPHRINE BITARTRATE 4 MG in NS 246 ML IV PRN (10:42)
[2024-04-20] MEDS: NS 500 ML IV ONE (10:49)
[2024-04-20 11:01] LABS: RED BLOOD CELL COUNT(AUTO) 1.47 MIL/uL (4.2-6.2)
[2024-04-20 11:04] LABS: ALBUMIN 1.7 g/dL (3.4-4.8); CALCIUM 7.8 mg/dL (8.4-11.0); CREATININE 3.96 mg/dL (0.55-1.30); TOTAL BILIRUBIN 0.4 mg/dL (0.0-1.0); TOTAL PROTEIN, SERUM 6.1 g/dL (6.4-8.3)
[2024-04-20] MEDS ORDERED: PANTOPRAZOLE SODIUM 40 MG/VIAL (PROTONIX) IVP STA (11:19)
[2024-04-20 11:28] LABS: POTASSIUM 6.2 mmol/L (3.5-5.1)
[2024-04-20] MEDS: SODIUM BICARBONATE 8.4% JECT 50 MEQ/50 ML SYRINGE IVP ONE (12:33)
[2024-04-20] MEDS: DEXTROSE 50% JECT 50 ML DISP.SYRIN ONE (12:33)
[2024-04-20] MEDS: DEXTROSE 50% JECT 50 ML DISP.SYRIN IVP ONE (12:33)
[2024-04-20] MEDS: INSULIN REGULAR, HUMAN 10 UNITS/0.1 ML, 3 ML VIAL IVP ONE (12:33)
[2024-04-20] MEDS: SODIUM BICARBONATE 8.4% JECT 50 MEQ/50 ML SYRINGE ONE (12:34)
[2024-04-20] MEDS: METOCLOPRAMIDE HCL 10 MG/2 ML VIAL IVP ONE (13:08)
[2024-04-20] MEDS: PANTOPRAZOLE SODIUM 80 MG in NS 100 ML IVP ONE (13:09)
[2024-04-20] MEDS: PANTOPRAZOLE SODIUM 40 MG/VIAL (PROTONIX) ONE (13:11)
[2024-04-20] MEDS: DESMOPRESSIN ACETATE 4 MCG/ML AMP IV ONE (15:07)
[2024-04-20 16:08] LABS: MEAN CORPUSCULAR HEMOGLOBIN 27 pg (27-31); MEAN CORPUSCULAR HGB CONC 32 % (32-36); MEAN CORPUSCULAR VOLUME 85 fL (79.0-98.0); PLATELET COUNT (AUTO) 498 K/uL (130-430); RED CELL DISTRIBUTION WIDTH 18.5 % (9.0-15.0); WHITE BLOOD COUNT (AUTO) 23.1 K/uL (4.8-10.8)
[2024-04-20 16:26] LABS: RED BLOOD CELL COUNT(AUTO) 1.47 MIL/uL (4.2-6.2)
[2024-04-20 16:32] LABS: INR 1.3 (0.80-1.20); PROTHROMBIN TIME 13.7 SECS (9.5-12.5)
[2024-04-20 16:33] LABS: HEMATOCRIT 12.5 % (36-54)
[2024-04-20 19:16] LABS: BAND % (MANUAL) 4 % (0-6); BASOPHILS % (MANUAL) 0 % (0-2); EOSINOPHILS % (MANUAL) 0 % (0-7); LYMPHOCYTES % (MANUAL) 9 % (20-46); MONOCYTES % (MANUAL) 4 % (0-11); PLATELET ESTIMATE INCREASED (ADEQUATE); POLYCHROMASIA 2+
[2024-04-20 19:17] LABS: ANISOCYTOSIS 1+; OVALOCYTES FEW
[2024-04-20 19:27] LABS: ALBUMIN 2.1 g/dL (3.4-4.8); CALCIUM 7.9 mg/dL (8.4-11.0); CREATININE 4.18 mg/dL (0.55-1.30); TOTAL BILIRUBIN 0.4 mg/dL (0.0-1.0); TOTAL PROTEIN, SERUM 6.4 g/dL (6.4-8.3)
[2024-04-20 20:10] LABS: POTASSIUM 5.9 mmol/L (3.5-5.1)
[2024-04-20] MEDS: PANTOPRAZOLE SODIUM 40 MG/VIAL (PROTONIX) IVP SCH (21:41)
[2024-04-20] MEDS: MORPHINE 2 MG/ML INJ. SYRINGE IVP PRN (22:46)
[2024-04-20] MEDS: levETIRAcetam 500 MG in NS 100 ML IV SCH (23:50)
[2024-04-21] VITALS (25 sets, daily range): BP systolic 125–175; PULSE 68–108; RESP 10–22; TEMP 97–98.3; O2SAT 95–100
[2024-04-21 06:22] LABS: BASOPHILS # (AUTO) 0.2 K/uL (0.0-0.2); BASOPHILS % (AUTO) 1.3 % (0.0-2.0); EOSINOPHILS # (AUTO) 0.3 K/uL (0.0-0.4); EOSINOPHILS % (AUTO) 2.8 % (0.0-4.0); HEMOGLOBIN 7.1 g/dL (14.0-18.0); LYMPHOCYTES # (AUTO) 1.3 K/uL (1.0-5.5); LYMPHOCYTES % (AUTO) 10.6 % (20.5-51.5); MEAN CORPUSCULAR HEMOGLOBIN 29 pg (27-31); MEAN CORPUSCULAR HGB CONC 34 % (32-36); MEAN CORPUSCULAR VOLUME 86 fL (79.0-98.0); MONOCYTES # (AUTO) 1.1 K/uL (0.0-1.0); NEUTROPHILS # (AUTO) 9.5 K/uL (1.8-7.7); NEUTROPHILS % (AUTO) 76.3 % (40.0-70.0); PLATELET COUNT (AUTO) 342 K/uL (130-430); RED BLOOD CELL COUNT(AUTO) 2.45 MIL/uL (4.2-6.2); RED CELL DISTRIBUTION WIDTH 16.7 % (9.0-15.0); WHITE BLOOD COUNT (AUTO) 12.5 K/uL (4.8-10.8)
[2024-04-21 06:55] LABS: ALBUMIN 1.9 g/dL (3.4-4.8); CALCIUM 7.7 mg/dL (8.4-11.0); CREATININE 2.13 mg/dL (0.55-1.30); POTASSIUM 3.6 mmol/L (3.5-5.1); TOTAL PROTEIN, SERUM 5.8 g/dL (6.4-8.3)
[2024-04-21 07:17] LABS: TOTAL BILIRUBIN 1.7 mg/dL (0.0-1.0)
[2024-04-21] MEDS: levETIRAcetam 500 MG in NS 100 ML IV SCH (09:03)
[2024-04-21 11:59] LABS: BASOPHILS # (AUTO) 0.1 K/uL (0.0-0.2); BASOPHILS % (AUTO) 1.1 % (0.0-2.0); EOSINOPHILS # (AUTO) 0.3 K/uL (0.0-0.4); EOSINOPHILS % (AUTO) 3.1 % (0.0-4.0); LYMPHOCYTES # (AUTO) 0.9 K/uL (1.0-5.5); LYMPHOCYTES % (AUTO) 8.5 % (20.5-51.5); MEAN CORPUSCULAR HEMOGLOBIN 29 pg (27-31); MEAN CORPUSCULAR HGB CONC 33 % (32-36); MEAN CORPUSCULAR VOLUME 87 fL (79.0-98.0); MONOCYTES % (AUTO) 9.6 % (1.7-9.3); NEUTROPHILS # (AUTO) 7.8 K/uL (1.8-7.7); NEUTROPHILS % (AUTO) 77.7 % (40.0-70.0); PLATELET COUNT (AUTO) 327 K/uL (130-430); RED BLOOD CELL COUNT(AUTO) 2.38 MIL/uL (4.2-6.2); RED CELL DISTRIBUTION WIDTH 17.3 % (9.0-15.0); WHITE BLOOD COUNT (AUTO) 10.1 K/uL (4.8-10.8)
[2024-04-21 12:10] LABS: HEMATOCRIT 20.6 % (36-54); HEMOGLOBIN 6.8 g/dL (14.0-18.0)
[2024-04-21] MEDS: HEPARIN SODIUM,PORCINE 5,000 UNITS/ML VIAL ONE ×2 (12:40→12:41)
[2024-04-21] MEDS: hydrALAZINE HCL 20 MG/ML VIAL IVP ONE (18:59)
[2024-04-21 23:14] LABS: ALBUMIN 2.1 g/dL (3.4-4.8); CREATININE 2.73 mg/dL (0.55-1.30); TOTAL BILIRUBIN 1.5 mg/dL (0.0-1.0); TOTAL PROTEIN, SERUM 6.3 g/dL (6.4-8.3)
[2024-04-22] VITALS (17 sets, daily range): BP systolic 107–176; PULSE 72–99; RESP 12–22; TEMP 97.1–98.1; O2SAT 94–100
[2024-04-22 06:13] LABS: BASOPHILS # (AUTO) 0.1 K/uL (0.0-0.2); BASOPHILS % (AUTO) 1.1 % (0.0-2.0); EOSINOPHILS # (AUTO) 0.3 K/uL (0.0-0.4); EOSINOPHILS % (AUTO) 3.5 % (0.0-4.0); HEMATOCRIT 25.6 % (36-54); HEMOGLOBIN 8.6 g/dL (14.0-18.0); LYMPHOCYTES # (AUTO) 1.3 K/uL (1.0-5.5); LYMPHOCYTES % (AUTO) 13.9 % (20.5-51.5); MEAN CORPUSCULAR HEMOGLOBIN 30 pg (27-31); MEAN CORPUSCULAR HGB CONC 34 % (32-36); MEAN CORPUSCULAR VOLUME 88 fL (79.0-98.0); MONOCYTES % (AUTO) 10.6 % (1.7-9.3); NEUTROPHILS # (AUTO) 6.8 K/uL (1.8-7.7); NEUTROPHILS % (AUTO) 70.9 % (40.0-70.0); PLATELET COUNT (AUTO) 304 K/uL (130-430); RED BLOOD CELL COUNT(AUTO) 2.91 MIL/uL (4.2-6.2); RED CELL DISTRIBUTION WIDTH 16.9 % (9.0-15.0); WHITE BLOOD COUNT (AUTO) 9.7 K/uL (4.8-10.8)
[2024-04-22 06:50] LABS: CALCIUM 8.2 mg/dL (8.4-11.0); CREATININE 2.83 mg/dL (0.55-1.30); POTASSIUM 3.8 mmol/L (3.5-5.1); TOTAL BILIRUBIN 1.2 mg/dL (0.0-1.0); TOTAL PROTEIN, SERUM 6.2 g/dL (6.4-8.3)
[2024-04-23] VITALS (7 sets, daily range): BP systolic 128–158; PULSE 68–84; RESP 16–20; TEMP 97.3–98.4; O2SAT 95–99
[2024-04-23 08:57] LABS: BASOPHILS # (AUTO) 0.2 K/uL (0.0-0.2); BASOPHILS % (AUTO) 1.9 % (0.0-2.0); EOSINOPHILS # (AUTO) 0.3 K/uL (0.0-0.4); EOSINOPHILS % (AUTO) 3.1 % (0.0-4.0); HEMATOCRIT 28.6 % (36-54); HEMOGLOBIN 9.5 g/dL (14.0-18.0); LYMPHOCYTES # (AUTO) 1.5 K/uL (1.0-5.5); LYMPHOCYTES % (AUTO) 16.8 % (20.5-51.5); MEAN CORPUSCULAR HEMOGLOBIN 30 pg (27-31); MEAN CORPUSCULAR HGB CONC 33 % (32-36); MEAN CORPUSCULAR VOLUME 89 fL (79.0-98.0); MONOCYTES % (AUTO) 11.1 % (1.7-9.3); NEUTROPHILS % (AUTO) 67.1 % (40.0-70.0); PLATELET COUNT (AUTO) 343 K/uL (130-430); RED BLOOD CELL COUNT(AUTO) 3.21 MIL/uL (4.2-6.2)
[2024-04-23] MEDS ORDERED: HYDROCORTISONE SOD SUCC 100 MG/2 ML VIAL IVP SCH (12:45)
[2024-04-24] VITALS (7 sets, daily range): BP systolic 130–142; PULSE 69–85; RESP 12–21; TEMP 97.8–99.1; O2SAT 97–98
[2024-04-24 05:57] LABS: BASOPHILS # (AUTO) 0.2 K/uL (0.0-0.2); BASOPHILS % (AUTO) 1.8 % (0.0-2.0); EOSINOPHILS # (AUTO) 0.3 K/uL (0.0-0.4); EOSINOPHILS % (AUTO) 3.5 % (0.0-4.0); HEMATOCRIT 28.5 % (36-54); HEMOGLOBIN 9.5 g/dL (14.0-18.0); LYMPHOCYTES # (AUTO) 1.5 K/uL (1.0-5.5); LYMPHOCYTES % (AUTO) 16.5 % (20.5-51.5); MEAN CORPUSCULAR HEMOGLOBIN 30 pg (27-31); MEAN CORPUSCULAR HGB CONC 33 % (32-36); MEAN CORPUSCULAR VOLUME 89 fL (79.0-98.0); MONOCYTES % (AUTO) 10.9 % (1.7-9.3); NEUTROPHILS # (AUTO) 6.3 K/uL (1.8-7.7); NEUTROPHILS % (AUTO) 67.3 % (40.0-70.0); PLATELET COUNT (AUTO) 376 K/uL (130-430); RED BLOOD CELL COUNT(AUTO) 3.21 MIL/uL (4.2-6.2); WHITE BLOOD COUNT (AUTO) 9.4 K/uL (4.8-10.8)
[2024-04-24 06:38] LABS: ALBUMIN 2.3 g/dL (3.4-4.8); CALCIUM 8.6 mg/dL (8.4-11.0); CREATININE 4.25 mg/dL (0.55-1.30); POTASSIUM 4.9 mmol/L (3.5-5.1); TOTAL BILIRUBIN 0.9 mg/dL (0.0-1.0)
[2024-04-24] MEDS: HEPARIN SODIUM, PORCINE 10,000 UNITS/ 10 ML VIAL MC ONE (13:30)
[2024-04-25] VITALS (7 sets, daily range): BP systolic 119–155; PULSE 68–87; RESP 16–18; TEMP 97.5–98.6; O2SAT 97–100
[2024-04-25 08:12] LABS: BASOPHILS # (AUTO) 0.1 K/uL (0.0-0.2); BASOPHILS % (AUTO) 1.3 % (0.0-2.0); EOSINOPHILS # (AUTO) 0.3 K/uL (0.0-0.4); HEMATOCRIT 29.7 % (36-54); HEMOGLOBIN 9.7 g/dL (14.0-18.0); LYMPHOCYTES # (AUTO) 1.7 K/uL (1.0-5.5); LYMPHOCYTES % (AUTO) 16.1 % (20.5-51.5); MEAN CORPUSCULAR HEMOGLOBIN 29 pg (27-31); MEAN CORPUSCULAR HGB CONC 33 % (32-36); MEAN CORPUSCULAR VOLUME 89 fL (79.0-98.0); MONOCYTES # (AUTO) 1.2 K/uL (0.0-1.0); MONOCYTES % (AUTO) 11.2 % (1.7-9.3); NEUTROPHILS % (AUTO) 68.4 % (40.0-70.0); PLATELET COUNT (AUTO) 352 K/uL (130-430); RED BLOOD CELL COUNT(AUTO) 3.35 MIL/uL (4.2-6.2); RED CELL DISTRIBUTION WIDTH 16.9 % (9.0-15.0); WHITE BLOOD COUNT (AUTO) 10.3 K/uL (4.8-10.8)
[2024-04-25] MEDS ORDERED: BALSAM PERU/CASTOR OIL 56.7 GM OINT...G. TP SCH (09:00)
[2024-04-26 01:52] VITALS: BP_SYST 136; PULSE 70; RESP 18; TEMP 97.2; O2SAT 98
[2024-04-26 08:00] VITALS: BP_SYST 134; PULSE 55; PULSE 65; RESP 18; TEMP 97.1; O2SAT 98
[2024-04-26 08:25] LABS: BASOPHILS # (AUTO) 0.2 K/uL (0.0-0.2); BASOPHILS % (AUTO) 1.7 % (0.0-2.0); EOSINOPHILS # (AUTO) 0.3 K/uL (0.0-0.4); HEMATOCRIT 30.9 % (36-54); HEMOGLOBIN 10.3 g/dL (14.0-18.0); LYMPHOCYTES # (AUTO) 1.4 K/uL (1.0-5.5); LYMPHOCYTES % (AUTO) 15.7 % (20.5-51.5); MEAN CORPUSCULAR HEMOGLOBIN 30 pg (27-31); MEAN CORPUSCULAR HGB CONC 33 % (32-36); MEAN CORPUSCULAR VOLUME 89 fL (79.0-98.0); MONOCYTES # (AUTO) 1.2 K/uL (0.0-1.0); MONOCYTES % (AUTO) 12.9 % (1.7-9.3); NEUTROPHILS # (AUTO) 6.1 K/uL (1.8-7.7); NEUTROPHILS % (AUTO) 66.7 % (40.0-70.0); PLATELET COUNT (AUTO) 361 K/uL (130-430); RED BLOOD CELL COUNT(AUTO) 3.47 MIL/uL (4.2-6.2); RED CELL DISTRIBUTION WIDTH 17.3 % (9.0-15.0); WHITE BLOOD COUNT (AUTO) 9.2 K/uL (4.8-10.8)
[2024-04-26] MEDS: HEPARIN SODIUM,PORCINE 5,000 UNITS/ML VIAL MC ONE (11:15)
[2024-04-26 12:48] VITALS: BP_SYST 101; PULSE 76; RESP 18; TEMP 98.9; O2SAT 99
[2024-04-26] MEDS: ALBUMIN HUMAN 25% 100 ML IV ONE (14:14)
[2024-04-26 15:55] VITALS: PULSE 76; O2SAT 99
[2024-04-26 16:00] VITALS: BP_SYST 101; PULSE 76; RESP 18; TEMP 98.9; O2SAT 99
[2024-04-26 16:53] VITALS: BP_SYST 110; PULSE 74; RESP 18; TEMP 97.7; O2SAT 99
== END 2024-04-26 16:45 | DRG 871 ==
LOC: SED 23:55 → UNDOADMIN 04-15 01:58 → SIC 04-15 01:58 → STU 04-16 11:10 → SIC 04-20 09:49 → STU 04-22 17:04
PROVIDERS: ADMIT General Practice; ATTEND General Practice
PROC: 5A1D70Z Performance of Urinary Filtration, Intermittent, Less than 6 Hours Per Day (ICD-10-PCS; principal; 2024-04-15)
PROC: 5A1D70Z Performance of Urinary Filtration, Intermittent, Less than 6 Hours Per Day (ICD-10-PCS; 2024-04-17)
PROC: 5A1D70Z Performance of Urinary Filtration, Intermittent, Less than 6 Hours Per Day (ICD-10-PCS; 2024-04-18)
PROC: 5A1D70Z Performance of Urinary Filtration, Intermittent, Less than 6 Hours Per Day (ICD-10-PCS; 2024-04-20)
PROC: 30233N1 Transfusion of Nonautologous Red Blood Cells into Peripheral Vein, Percutaneous Approach (ICD-10-PCS; 2024-04-20)
PROC: 02HV33Z Insertion of Infusion Device into Superior Vena Cava, Percutaneous Approach (ICD-10-PCS; 2024-04-20)
PROC: B548ZZA Ultrasonography of Superior Vena Cava, Guidance (ICD-10-PCS; 2024-04-20)
PROC: 5A1D70Z Performance of Urinary Filtration, Intermittent, Less than 6 Hours Per Day (ICD-10-PCS; 2024-04-21)
DX: A41.9 Sepsis, unspecified organism (principal); J18.9 Pneumonia, unspecified organism; N18.6 End stage renal disease; I13.2 Hypertensive heart and chronic kidney disease with heart failure and with stage 5 chronic kidney disease, or end stage renal disease; N39.0 Urinary tract infection, site not specified; K92.0 Hematemesis; I48.20 Chronic atrial fibrillation, unspecified; D62 Acute posthemorrhagic anemia; I69.354 Hemiplegia and hemiparesis following cerebral infarction affecting left non-dominant side; R04.0 Epistaxis; I48.0 Paroxysmal atrial fibrillation; I50.9 Heart failure, unspecified; G40.909 Epilepsy, unspecified, not intractable, without status epilepticus; E11.40 Type 2 diabetes mellitus with diabetic neuropathy, unspecified; E11.22 Type 2 diabetes mellitus with diabetic chronic kidney disease; B96.1 Klebsiella pneumoniae [K. pneumoniae] as the cause of diseases classified elsewhere; Z79.4 Long term (current) use of insulin; Z79.899 Other long term (current) drug therapy; Z99.2 Dependence on renal dialysis; Z90.49 Acquired absence of other specified parts of digestive tract; Z79.01 Long term (current) use of anticoagulants; Z95.818 Presence of other cardiac implants and grafts; Z79.82 Long term (current) use of aspirin; Z87.891 Personal history of nicotine dependence; Z79.51 Long term (current) use of inhaled steroids
CPT/HCPCS: 36415; 71045; 71250-TC; 76604; 80048; 80053; 81000; 81001; 81015; 82948; 83037; 83605; 83735; 83880; 84443; 84484; 85007; 85025; 85027; 85610; 85730; 86870; 86886; 86900; 86901; 86905; 86920; 87040; 87081; 87086; 87186; 87340; 90935; 90937; 92610-GN; 93005; 93306; 94070; 94640; 94760; 97110-GP; 97530-GP; 99285; C1751; G0378; J0360; J0696; J1644; J1815; J1940; J1953; J2060; J2185; J2270; J2405; J2470; J2597; J2765; J3490; J7030; J7040; J7050; J7060; P9021; P9046